=== PATIENT | male | born 1960 | race Caucasian/White ===

== ENCOUNTER 2019-05-23 07:01 | Inpatient (IN) | payer OTHER ==
[2019-05-23] VITALS (7 sets, daily range): BP systolic 92–138; BP diastolic 56–70
[~2019-05-23] VITALS: Ht 172.7 cm; Wt 74.4 kg
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
[~2019-05-23 07:01] MED LIST: ADDERALL XR 2020 MG; ALPRAZOLAM2 MG PO; AMMONIUM LACTA225 GM; BARIATRIC MVI PO; BENICAR20 MG PO; BYSTOLIC 5 MG5 M1 PO; CHANTIX1 MG PO; CIALIS2.5 MG PO; CIPROFLOXACIN500 M1 PO; FEVERALL650 MG RC; GLUCOPHAGE XR500 MG PO; GLUCOPHAGE1000 MG PO; HUMALOG100 UNIT/1; HUMULIN 50100 UNIT/1; IBUPROFEN 600600 M1 PO; LANTUS SUBQ; LORAZEPAM 2MG TA2 M1 PO; LUNESTA1 MG PO; NORCO 10-325 T1 EACH PO; NORCO 5-325 TA1 EACH PO; ONDANSETRON HCL4 M2 PO; PEPTO-BISM262 MG/15 PO; PRILOSEC 20 MG20 MG PO; SENOKOT-S1 TA1 PO; URSODIOL300 MG PO; VICODIN HP 10-1 EAC1 PO; [UNRECOGNIZED DRUG - OTHER]
[2019-05-23 07:44] LABS: HEMATOCRIT 40.9 % (42.0-52.0); HEMOGLOBIN 13.2 gm/dL (14.0-18.0); MCH 24.6 pg (26.0-34.0); MCHC 32.2 g/dL (28.0-37.0); MCV 76.4 fL (80.0-100.0); PLATELET COUNT 420 thou/uL (150-400); RBC 5.36 mil/uL (4.50-6.00); WBC 19.6 thou/uL (4.0-11.0)
[2019-05-23 07:50] LABS: CALCIUM 9.3 mg/dL (8.5-10.1); CREATININE 1.1 mg/dL (0.7-1.3); POTASSIUM 4.1 mmol/L (3.5-5.1)
[2019-05-23 07:57] LABS: ALBUMIN 3.9 g/dL (3.4-5.0); TOTAL BILIRUBIN 0.5 mg/dL (<0.1-1.0); TOTAL PROTEIN 7.6 g/dL (6.4-8.2)
[2019-05-23 08:45] LABS: ABSOLUTE NEUTROPHILS 17.2 thou/uL (1.4-8.2); PLATELET ESTIMATE INCREASED
[2019-05-23 10:31] LABS: HCO3 25.2 mmol/L (22.0-26.0); PCO2 38.8 mmHg (35.0-45.0); PO2 54.1 mmHg (80.0-100.0); pH 7.431 (7.360-7.450); sO2 89.1 % (92.0-98.0)
[2019-05-23 10:34] LABS: URINE BILIRUBIN NEGATIVE (Negative); URINE BLOOD NEGATIVE (Negative); URINE CLARITY CLEAR; URINE COLOR YELLOW; URINE GLUCOSE-RANDOM* 3+ (Negative); URINE KETONES NEGATIVE (Negative); URINE LEUKOCYTES-REFLEX NEGATIVE (Negative); URINE NITRITE-REFLEX NEGATIVE (Negative); URINE PROTEIN (DIPSTICK) NEGATIVE (Negative); URINE SPECIFIC GRAVITY <= 1.005 (1.005-1.035); URINE UROBILINOGEN 0.2 E.U./dl (0.2-1.0)
[2019-05-23 10:42] LABS: AMP/METHAMP POSITIVE (Negative); BARBITURATES Negative (Negative); BENZODIAZEPINES POSITIVE (Negative); COCAINE Negative (Negative); METHADONE Negative (Negative); OPIATES POSITIVE (Negative); PCP Negative (Negative)
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
[2019-05-24 00:10] VITALS: BP 124/72
[2019-05-24 03:54] LABS: ABSOLUTE NEUTROPHILS 6.9 thou/uL (1.4-8.2); BASOPHILS 0.3 % (0.0-2.0); EOSINOPHILS 0.2 % (0.0-3.0); HEMATOCRIT 33.6 % (42.0-52.0); MCHC 32.3 g/dL (28.0-37.0); MCV 77.3 fL (80.0-100.0); POLYS 66.5 % (36.0-66.0); RBC 4.35 mil/uL (4.50-6.00); RDW 15.6 % (10.5-14.5); WBC 10.4 thou/uL (4.0-11.0)
[2019-05-24 03:56] LABS: CALCIUM 9.1 mg/dL (8.5-10.1); CREATININE 0.8 mg/dL (0.7-1.3); POTASSIUM 3.6 mmol/L (3.5-5.1)
[2019-05-24 03:59] LABS: HEMOGLOBIN 10.9 gm/dL (14.0-18.0); PLATELET COUNT 339 thou/uL (150-400)
[2019-05-24 04:40] VITALS: BP 126/70
[2019-05-24 05:36] LABS: GLYCOHEMOGLOBIN (HGB A1C) 7.9 % (4.8-5.6)
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
[2019-05-24 07:18] VITALS: BP 146/79
--- NOTE | 2019-05-24 08:47 | 2DMMODE ---
[facility] [address] [place] [address] 2 D/M-MODE ECHOCARDIOGRAM Name: CONSTANZA MEJIA Room #: 355-P ADM IN M.R.#: [id number] Admission: 05/23/19 Attend Phys: Juan Luis Kim MD Discharge: Date of : 60 Report #: [id number] THIS REPORT FOR: //name// APPROVED REPORT Study performed: 05/23/2019 12:02:57 EXAM: Comprehensive 2D, Doppler, and color-flow Echocardiogram Patient Location: In-Patient Room #: 355 Status: routine BSA: 1.88 HR: 83 bpm Rhythm: NSR Other Information Study Quality: Adequate 2D Dimensions RVDd: 34.15 mm IVSd: 15.64 (7-11mm) LVOT Diam: 22.21 (18-24mm) LVDd: 42.15 mm PWd: 13.48 (7-11mm) Ascending Ao: 30.19 (22-36mm) LVDs: 26.11 (25-40mm) Left Atrium: 32.71 (27-40mm) Aortic Root: 32.22 mm LV Single Plane 4CH: 68.17 % Volumes Left Atrial Volume (Systole) Single Plane 4CH: 57.41 mL Single Plane 2CH: 31.89 mL Aortic Valve AoV Peak Puneet.: 2.20 m/s AO Peak Gr.: 19.42 mmHg AO Mean Gr.: 10.69 mmHg AO V2 Mean: 1.56 m/s AO V2 VTI: 44.73 cm Mitral Valve E/A Ratio: 1.0 MV Decel. Time: 269.49 ms MV E Max Puneet.: 0.91 m/s MV A Puneet.: 0.87 m/s [facility] [place] [address] [place] [address] 2 D/M-MODE ECHOCARDIOGRAM Name: CONSTANZA MEJIA YAZ Room #: 355-P ADM IN ..#: [id number] Admission: 05/23/19 Attend Phys: Juan Luis Kim MD Discharge: Date of : 60 Report #: [id number] MV PHT: 78.15 ms Pulmonary Valve PV Peak Puneet.: 1.22 m/s PV Peak Gr.: 5.95 mmHg Tricuspid Valve TR Peak Puneet.: 2.82 m/s TR Peak Gr.: 31.82 mmHg Left Ventricle The left ventricle is normal size. Mild concentric left ventricular hypertrophy. The left ventricular systolic function is normal. The left ventricular ejection fraction is within the normal range. LVEF is 60-65%. Right Ventricle The right ventricle is normal size. The right ventricular systolic function is normal. Atria The left atrium size is normal. The right atrium size is normal. Aortic Valve The Aortic valve is sclerotic. No hemodynamically significant valvular aortic stenosis. Mitral Valve The mitral valve is normal in structure and function. Mild mitral regurgitation. Tricuspid Valve Trace to mild tricuspid regurgitation. Estimated PAP 40 mmHg. Pulmonic Valve Pulmonic valve is grossly normal in structure. Trace pulmonic regurgitation. Great Vessels The aortic root is normal in size. The ascending aorta is normal in size. IVC is dilated and collapses >50% with inspiration. Pericardium There is no pericardial effusion. [facility] [place] [address] [place] [address] 2 D/M-MODE ECHOCARDIOGRAM Name: CONSTANZA MEJIA Room #: 355-P [facility] IN .R.#: [id number] Admission: 05/23/19 Attend Phys: Juan Luis Kim MD Discharge: Date of : 60 Report #: [id number] <Conclusion> The left ventricle is normal size. Mild concentric left ventricular hypertrophy. LVEF is 60-65%. The right ventricle is normal size. The left atrium size is normal. The Aortic valve is sclerotic. No hemodynamically significant valvular aortic stenosis. Mild mitral regurgitation. Trace to mild tricuspid regurgitation. Estimated PAP 40 mmHg. The aortic root is normal in size. There is no pericardial effusion. <ELECTRONICALLY SIGNED> By: Rell Mclain MD, [facility] 05/24/19 0846 0846 Rell Mclain MD, FACC /INF
[2019-05-24 11:31] VITALS: BP 155/74
[2019-05-24] MEDS ORDERED: ACETAMINOPHEN325 M1 PO (14:46)
[2019-05-24] MEDS ORDERED: LEVAQUIN 750 M750 MG PO (14:46)
[2019-05-24] MEDS ORDERED: BENICAR40 MG PO (14:46)
[2019-05-24 15:04] VITALS: BP 155/74
[2019-05-24 15:07] VITALS: BP 141/72
--- NOTE | 2019-05-24 16:02 | NUR ---
PATIENT A/O X4. AMBULATED IN DOCKERY WAY WITH STEADY GAIT. DC HOME NOW.
--- NOTE | 2019-05-25 16:02 | EKG ---
[address] [address] ELECTROCARDIOGRAM REPORT Name: CONSTANZA MEJIA Room #: 355-P DIS IN M.R.#: [id number] Admission: 05/23/19 Attend Phys: Juan Luis Kim MD Discharge: 05/24/19 Date of : 60 Report #: [id number] THIS REPORT FOR: //name// 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 Baseline wander in lead(s) V5 Compared to ECG 12/01/2012 13:24:57 Electronically Signed On 05-25-2019 16:01:57 WAREDRESSER by Israel Ott [email or web address] <ELECTRONICALLY SIGNED> By: Israel Ott MD 05/25/19 1601 0737 0737 Israel Ott MD /EPI
--- NOTE | 2019-05-25 16:05 | EKG ---
[address] [address] ELECTROCARDIOGRAM REPORT Name: CONSTANZA MEJIA Room #: 355- DIS IN M.R.#: [id number] Admission: 05/23/19 Attend Phys: Juan Luis Kim MD Discharge: 05/24/19 Date of : 60 Report #: [id number] THIS REPORT FOR: //name// [facility] Test Date: 2019-05-23 Test Time: 11:58:33 Pat Name: CONSTANZA MEJIA Department: Room: 355 P Gender: M Office Support Specialist: Eric MAYER : 1960 Requested By: Rell Mclain Order Number: [id number] MD: Israel Ott Measurements Intervals [place] Rate: 87 P: -63 LA: 70 QRS: 16 QRSD: 94 T: 5 QT: 369 QTc: 444 Interpretive Statements Sinus or ectopic atrial rhythm Short LA interval Borderline T abnormalities, inferior leads Compared to ECG 12/01/2012 13:24:57 Electronically Signed On 05-25-2019 16:04:54 CHEESE BLENDER by Israel Ott [email or web address] <ELECTRONICALLY SIGNED> By: Israel Ott MD 05/25/19 1604 1158 1158 Israel Ott MD /EPI
== END 2019-05-24 16:29 | disposition home or self-care (01) | DRG 871 ==
LOC: ER 07:01 → EROBS 08:31 → 3W 09:32
PROVIDERS: Emergency Medicine; ADMIT Internal Medicine
DX: A41.9 Sepsis, unspecified organism (principal); J18.9 Pneumonia, unspecified organism; G92 Toxic encephalopathy; F13.20 Sedative, hypnotic or anxiolytic dependence, uncomplicated; F11.20 Opioid dependence, uncomplicated; E11.65 Type 2 diabetes mellitus with hyperglycemia; I10 Essential (primary) hypertension; S90.934A Unspecified superficial injury of right lesser toe(s), initial encounter; X58.XXXA Exposure to other specified factors, initial encounter; F41.9 Anxiety disorder, unspecified; E11.40 Type 2 diabetes mellitus with diabetic neuropathy, unspecified; F90.9 Attention-deficit hyperactivity disorder, unspecified type; I35.0 Nonrheumatic aortic (valve) stenosis; K21.9 Gastro-esophageal reflux disease without esophagitis; Z79.899 Other long term (current) drug therapy; Z91.09 Other allergy status, other than to drugs and biological substances; Z87.891 Personal history of nicotine dependence; Y93.89 Activity, other specified; Y92.89 Other specified places as the place of occurrence of the external cause; Y99.8 Other external cause status; Z88.0 Allergy status to penicillin; Z79.4 Long term (current) use of insulin; Z79.2 Long term (current) use of antibiotics; Z98.84 Bariatric surgery status; Z23 Encounter for immunization; Z90.49 Acquired absence of other specified parts of digestive tract; Z82.49 Family history of ischemic heart disease and other diseases of the circulatory system; G89.4 Chronic pain syndrome; E11.69 Type 2 diabetes mellitus with other specified complication
CPT/HCPCS: 10080

== ENCOUNTER 2019-05-28 06:07 | Inpatient (IN) | payer OTHER ==
[~2019-05-28] VITALS: Ht 172.7 cm; Wt 71.7 kg
[~2019-05-28 06:07] MED LIST changes: +ACETAMINOPHEN325 M1 PO; +BENICAR40 MG PO; +LEVAQUIN 750 M750 MG PO
[2019-05-28 06:08] VITALS: BP 159/82
[2019-05-28] MEDS ORDERED: METFORMIN PO (06:14)
[2019-05-28] MEDS ORDERED: LOPRESSOR50 MG PO (06:15)
[2019-05-28] MEDS ORDERED: LISINOPRIL PO (06:16)
[2019-05-28] MEDS ORDERED: NEXIUM 40 MG CA40 M1 PO (06:17)
[2019-05-28 06:37] LABS: HEMATOCRIT 37.8 % (42.0-52.0); HEMOGLOBIN 12.1 gm/dL (14.0-18.0); MCH 24.8 pg (26.0-34.0); MCHC 32.1 g/dL (28.0-37.0); MCV 77.2 fL (80.0-100.0); PLATELET COUNT 512 thou/uL (150-400); RBC 4.89 mil/uL (4.50-6.00); RDW 14.7 % (10.5-14.5); WBC 14.9 thou/uL (4.0-11.0)
[2019-05-28 06:49] LABS: ANION GAP 10 mmol/L (7-16); BUN 9 mg/dL (7-18); CALCIUM 9.5 mg/dL (8.5-10.1); CHLORIDE 96 mmol/L (98-107); CO2 29 mmol/L (21-32); GLUCOSE 217 mg/dL (74-106); POTASSIUM 4.2 mmol/L (3.5-5.1); SODIUM 135 mmol/L (136-145)
[2019-05-28 07:00] LABS: ALBUMIN 3.6 g/dL (3.4-5.0); LIPASE 63 U/L (73-393); SGOT 23 U/L (15-37); SGPT 25 U/L (30-65); TOTAL BILIRUBIN 0.4 mg/dL (<0.1-1.0); TOTAL PROTEIN 7.4 g/dL (6.4-8.2); TROPONIN-I <0.06 ng/mL (<0.06)
[2019-05-28 07:25] LABS: URINE BILIRUBIN NEGATIVE (Negative); URINE BLOOD NEGATIVE (Negative); URINE CLARITY CLEAR; URINE COLOR YELLOW; URINE GLUCOSE-RANDOM* NEGATIVE (Negative); URINE KETONES NEGATIVE (Negative); URINE LEUKOCYTES-REFLEX NEGATIVE (Negative); URINE NITRITE-REFLEX NEGATIVE (Negative); URINE PROTEIN (DIPSTICK) NEGATIVE (Negative); URINE SPECIFIC GRAVITY 1.025 (1.005-1.035); URINE UROBILINOGEN 0.2 E.U./dl (0.2-1.0)
[2019-05-28 08:55] LABS: ABSOLUTE NEUTROPHILS 11.9 thou/uL (1.4-8.2); ANISOCYTOSIS 1+; METAMYELOCYTES 2 %
[2019-05-28 11:17] LABS: AMP/METHAMP Negative (Negative); BARBITURATES Negative (Negative); BENZODIAZEPINES POSITIVE (Negative); COCAINE Negative (Negative); METHADONE Negative (Negative); OPIATES POSITIVE (Negative); PCP Negative (Negative)
[2019-05-28 11:41] VITALS: BP 158/67
[2019-05-28 12:10] VITALS: BP 142/77
--- NOTE | 2019-05-28 16:08 | EKG ---
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[place] : 1960 Requested By: Joey Tejeda Order Number: [id number] MD: Israel Ott Measurements Intervals [place] Rate: 78 P: 127 MD: 94 QRS: 41 QRSD: 98 T: -3 QT: 380 QTc: 433 Interpretive Statements Sinus rhythm Short MD interval Borderline T abnormalities, inferior leads Compared to ECG 05/23/2019 11:58:33 Ectopic atrial rhythm no longer present T-wave abnormality still present Electronically Signed On 05-28-2019 16:08:12 PROJECT ESTIMATOR by Israel Ott [email or web address] <ELECTRONICALLY SIGNED> By: Israel Ott MD 05/28/19 1608 3 Israel Ott MD /EPI
--- NOTE | 2019-05-28 16:57 | NUR ---
1630 pt up to floor from post op. pt alert and oriented. Follows commands. lungs clear, diminished. abd incision intact, aproximated, lamar. bowel sounds hypoactive, distended, hard. BG 211. FAMILY IN ROOM VISITING. PT COMPLAINS OF PAIN, 9. Pain med given per order. denies any needs. will continue to monitor
[2019-05-28 19:19] VITALS: BP 159/88
[2019-05-28 23:56] VITALS: BP 183/92
[2019-05-29 04:27] VITALS: BP 182/83
[2019-05-29 05:20] LABS: HEMATOCRIT 35.9 % (42.0-52.0); HEMOGLOBIN 11.4 gm/dL (14.0-18.0); MCH 24.5 pg (26.0-34.0); MCHC 31.8 g/dL (28.0-37.0); MCV 77.2 fL (80.0-100.0); RBC 4.65 mil/uL (4.50-6.00); RDW 15.1 % (10.5-14.5); WBC 15.2 thou/uL (4.0-11.0)
[2019-05-29 05:41] LABS: CALCIUM 8.8 mg/dL (8.5-10.1); CREATININE 0.9 mg/dL (0.7-1.3); POTASSIUM 4.5 mmol/L (3.5-5.1)
[2019-05-29 07:11] VITALS: BP 180/91
[2019-05-29 11:36] VITALS: BP 153/73
[2019-05-29 15:43] VITALS: BP 188/99
[2019-05-29 19:43] VITALS: BP 177/82
--- NOTE | 2019-05-29 19:49 | NUR ---
1800 pt transfered to 450. Report given CARA FUNES. PT BELONGING SEND WITH HIM.
--- NOTE | 2019-05-29 21:45 | NUR ---
RECEIVED A CALL FROM PHARMACY THAT HAS ORDERD TYLENOL DRIPS ON PT. PER PHARMACY, JO BARR. TYLENOL DRIP CAN ONLY BE ORDERED BY HOT REPAIRMAN OR CARDIOTHORACIC SURGEON PER HOSPITAL PROTOCOL. CALLED 'S OFFICE AND PAGED YARN TEXTURING MACHINE OPERATOR NUBIA AT AROUND 5468.
[2019-05-30 00:04] VITALS: BP 173/89
--- NOTE | 2019-05-30 04:15 | NUR ---
ASSUMED CARE OF PT AT 1900HRS. PT MAKES NEEDS BE KNOWN. FALL PRECAUTION IN PLACE. FAMILY WAS AT BEDSIDE FOR THE DURATION OF THE SHIFT. SURGICAL INCISION WAS C/D/I. PT REPORTED PAIN AND WAS MEDICATED WITH PRN PAIN MEDS WITH SOME RELIEF. PT IS NPO. PT DENIED NAUSEA AND NO VOMITING WAS NOTED. PT REPORTS PASSING GAS. PT WAS ABLE TO SLEEP PART OF THE SHIFT. PT HAS ELEVATED BP AND PRN MEDS WERE USED. WILL CONTINUE TO MONITOR FOR CHANGES.
[2019-05-30 04:21] VITALS: BP 179/92
[2019-05-30 05:31] VITALS: BP 148/76; BP 159/58
[2019-05-30 05:40] LABS: HEMATOCRIT 40.1 % (42.0-52.0); HEMOGLOBIN 12.6 gm/dL (14.0-18.0); MCH 24.4 pg (26.0-34.0); MCHC 31.5 g/dL (28.0-37.0); MCV 77.4 fL (80.0-100.0); RBC 5.18 mil/uL (4.50-6.00); RDW 15.6 % (10.5-14.5); WBC 17.1 thou/uL (4.0-11.0)
[2019-05-30 06:01] LABS: CALCIUM 9.1 mg/dL (8.5-10.1); CREATININE 0.8 mg/dL (0.7-1.3)
[2019-05-30 08:00] VITALS: BP 164/78
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
--- NOTE | 2019-05-30 10:32 | NUR ---
PT A&OX4, VSS, PAIN IN ABDOMEN. INCISION MIDLINE ABDOMEN SECURED WITH DERMABOND, NO DRAINAGE, TENDER TO TOUCH. SOLORZANO REMOVED OVERNIGHT, PATIENT HAS VOIDED SINCE, NO BM YET. PT PAIN LEVEL IS 10 AND EXPERIENCING ANXIETY. VERBAAL ORDER FROM SURGEON TO WALK PATIENT. FLUIDS ARE RUNNING, IV PATENT. NO SIGNS OF DISTRESS. FAMILY AT BEDSIDE. WILL CONTINUE TO MONITOR.
[2019-05-30 15:00] VITALS: BP 160/80
[2019-05-30 19:31] VITALS: BP 146/81
[2019-05-31 03:33] LABS: HEMATOCRIT 38.7 % (42.0-52.0); HEMOGLOBIN 12.2 gm/dL (14.0-18.0); MCH 24.3 pg (26.0-34.0); MCHC 31.7 g/dL (28.0-37.0); MCV 76.7 fL (80.0-100.0); RBC 5.04 mil/uL (4.50-6.00); RDW 15.3 % (10.5-14.5); WBC 12.7 thou/uL (4.0-11.0)
[2019-05-31 04:02] LABS: CALCIUM 8.7 mg/dL (8.5-10.1); CREATININE 0.7 mg/dL (0.7-1.3); POTASSIUM 3.5 mmol/L (3.5-5.1)
[2019-05-31 04:11] VITALS: BP 100/44
--- NOTE | 2019-05-31 04:51 | NUR ---
PROGRESS PT NOT PROGRESSING WITH PAIN CONTROL. RATES HIS PAIN A 10 TO 20 OUT OF 0/10 SCALE. TAKING 1.2 MG DILAUDID EVERY 2 HOURS WITH LITTLE EFFECT. PT ALSO VERY ANXIOUS REQUESTING 1 MG ATIVAN EVERY 4 HOURS IVP AND IS ALSO TAKING XANAX Q8HRS. PT DOZES OFF FOR BRIEF PERIODS BUT AWAKENS EVERY TIME I ENTER THE ROOM. ABDOMEN DISTENDED AND SLIGHTLY FIRM BUT STATES ITS A LOT SOFTER TODAY THAN PREVIOUSLY. PASSED A LARGE AMOUNT OF FLATUS AFTER SUPPOSITORY, BS HYPOACTIVE DENIES NAUSEA. USING ORAL SWABS FOR COMFORT PT REMAINS NPO. CONTINUE TO MONITOR.
[2019-05-31 05:54] VITALS: BP 167/85
[2019-05-31 08:09] VITALS: BP 164/91
--- NOTE | 2019-05-31 16:38 | NUR ---
Assumed patient care at 0715. Vital signs have been stable. Abdominal incision is without s/s of infection. Patient was given po medications last two shifts with minimal amount of water, as he had a bowel movement last night. Dr Bentley notified of this, changed Diet to Clear Liquids as patient reported having another bowel movement this am and abdomen is less firm and distended. Patient had another bowel movement this afternoon (brown, loose and of moderate amount). Patient has been asking for his Hydromorphone, Ativan and Xanax often. IV continues in left forearm with Sodium Chloride 0.9% running at 100mLs per hour. Patient has been doing well on clear liquids; no nausea and/or vomiting. Will continue to monitor.
[2019-05-31 17:01] VITALS: BP 154/85
[2019-05-31 18:44] VITALS: BP 154/87
[2019-06-01 08:23] VITALS: BP 128/81
--- NOTE | 2019-06-01 12:13 | NUR ---
PT ADMITTED RELATED TO ABDOMINAL PAIN. CM REVIEWED CHART AND SPOKE WITH CARE TEAM. CM MET WITH AT BEDSIDE THIS DAY. PT IS A&O X4. CM ROLE INTRODUCED. PT INDICATED HE HAS TWO HOUSES A [place] IN [place] AND ONCE HERE WHICH HE WILL BE RETURNING TO UPON [place]. PT INDICATED THERE ARE 2 STEPS TO ENTER THEN ALL NEEDS ON 1 LEVEL. PT INDICATED HIS SIG OTHER IS STAYING WITH HIM. 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 PT INDICATED HE PLANS TO RETURN HOME ONCE MEDICALLY STABLE. CM TO FOLLOW INDICATED WITH DC PLANNING.
[2019-06-01 15:11] VITALS: BP 145/77
--- NOTE | 2019-06-01 17:40 | NUR ---
Assumed patient care at 0715. Vital signs have been stable. Abdominal incision site is intact; no signs/symptoms of infection. Patient started on bowel regime today, has consumed Soft Fiber Restricted Diet today. Patient has had no nausea and/or vomiting. He has reported having two soft-formed bowel movements. Patient continues to complain of abdominal pain and anxiety. He has been getting up to use the restroom by himself, as he does not seem to remember to call for stand-by assist (he is wearing yellow socks). IV fluids have been discontinued. Pain medications have been decreased by quantity. Patient verbalizes an understanding to this. Will continue to monitor.
[2019-06-01 19:06] VITALS: BP 134/76
--- NOTE | 2019-06-02 07:44 | NUR ---
PROGRESS PT A/O X4 TAKING HYDROCODONE AND DILAUDID FOR PAIN WITH SOME EFFECT, SLEEPS AFTER MEDICATIONS BUT AWAKENS REQUESTING IT. CONTINUES ATIVAN Q4HRS AND XANAX NEEDED. PT SLEPT MORE LAST NIGHT. LARGE SOFT BM AFTER SUPPOSITORY AND PT CONTINUES TO PASS FLATUS SOFT ABDOMEN SLIGHTLY ROUNDED BUT HAS NORMOACTIVE BS. PLANS TO DC HOME TODAY.
[2019-06-02 07:50] VITALS: BP 130/59
[2019-06-02] MEDS ORDERED: MIRALAX17 GM PO (09:29)
[2019-06-02] MEDS ORDERED: SENNA-TIME S T1 EACH PO (09:29)
[2019-06-02 10:01] LABS: HEMATOCRIT 35.8 % (42.0-52.0); HEMOGLOBIN 11.4 gm/dL (14.0-18.0); MCH 24.4 pg (26.0-34.0); MCHC 31.8 g/dL (28.0-37.0); MCV 76.7 fL (80.0-100.0); RBC 4.67 mil/uL (4.50-6.00); RDW 15.1 % (10.5-14.5); WBC 10.2 thou/uL (4.0-11.0)
[2019-06-02 10:22] LABS: ALBUMIN 2.5 g/dL (3.4-5.0); CALCIUM 8.4 mg/dL (8.5-10.1); CREATININE 0.8 mg/dL (0.7-1.3); PHOSPHORUS 3.9 mg/dL (2.5-4.9); POTASSIUM 3.2 mmol/L (3.5-5.1)
--- NOTE | 2019-06-02 12:44 | NUR ---
CARE TEAM INDICATED THAT PT IS MEDICALLY STABLE TO DC HOME THIS DAY. PT INDICATED THAT HE HAS SUPPORT OF CHILDREN AND SIG OTHER AND THAT HE DOESN'T ANTICIAPTE ANY NEEDS UPON DC. NO OTHER CM INTERVENTION INDICATED. CASE CLOSED.
[2019-06-02] MEDS ORDERED: METFORMIN HCL500 M3 PO (13:08)
[2019-06-02] MEDS ORDERED: MOVANTIK12.5 MG PO (13:08)
[2019-06-02] MEDS ORDERED: VICODIN HP 10-1 EAC1 PO (13:08)
[2019-06-02] MEDS ORDERED: XANAX1 MG PO (13:08)
[2019-06-02 13:31] VITALS: BP 130/59
--- NOTE | 2019-06-02 16:13 | NUR ---
Patient was discharged at 1430 today. Education was provided to patient and girlfriend. Patient verbalized an understanding to all Discharge Instructions before signing Discharge Paperwork. Patient left with his cell phone, cremator, clothing and girlfriend at approximately 1435.
== END 2019-06-02 14:54 | disposition home or self-care (01) | DRG 335 ==
LOC: ER 06:07 → EROBS 08:36 → TBA 08:36 → 3W 08:36 → TBA 12:09 → 3W 16:37 → 4W 05-29 18:53
PROVIDERS: Emergency Medicine; Surgery; ADMIT Hospitalist
PROC: 0DN80ZZ Release Small Intestine, Open Approach (ICD-10-PCS; principal; 2019-05-28)
DX: K56.50 Intestinal adhesions [bands], unspecified as to partial versus complete obstruction (principal); E43 Unspecified severe protein-calorie malnutrition; J98.11 Atelectasis; R18.8 Other ascites; K56.2 Volvulus; K56.7 Ileus, unspecified; K21.9 Gastro-esophageal reflux disease without esophagitis; F41.9 Anxiety disorder, unspecified; F13.980 Sedative, hypnotic or anxiolytic use, unspecified with sedative, hypnotic or anxiolytic-induced anxiety disorder; R59.0 Localized enlarged lymph nodes; K40.90 Unilateral inguinal hernia, without obstruction or gangrene, not specified as recurrent; E11.40 Type 2 diabetes mellitus with diabetic neuropathy, unspecified; D72.829 Elevated white blood cell count, unspecified; F11.90 Opioid use, unspecified, uncomplicated; D50.9 Iron deficiency anemia, unspecified; I10 Essential (primary) hypertension; K59.00 Constipation, unspecified; G89.29 Other chronic pain; I25.10 Atherosclerotic heart disease of native coronary artery without angina pectoris; Z87.01 Personal history of pneumonia (recurrent); Z87.891 Personal history of nicotine dependence; Z79.84 Long term (current) use of oral hypoglycemic drugs; Z79.899 Other long term (current) drug therapy; Z88.0 Allergy status to penicillin; Z88.8 Allergy status to other drugs, medicaments and biological substances; Z98.84 Bariatric surgery status; Z90.49 Acquired absence of other specified parts of digestive tract; T40.605A Adverse effect of unspecified narcotics, initial encounter
CPT/HCPCS: 10047; 10879; 50010; 50101; 50386; 50455; 51114; 54118; 56524; 56525; 56526; 57092; 57103; 62110; 62900; 70005

== ENCOUNTER → 2021-02-27 | Outpatient (CLI) | payer BC, OTHER ==
[~2021-02-27] MED LIST changes: +LISINOPRIL PO; +LOPRESSOR50 MG PO; +METFORMIN HCL500 M3 PO; +METFORMIN PO; +MIRALAX17 GM PO; +MOVANTIK12.5 MG PO; +NEXIUM 40 MG CA40 M1 PO; +SENNA-TIME S T1 EACH PO; +XANAX1 MG PO
== END ==
LOC: SJCVCIMAG 13:02
PROVIDERS: ATTEND Internal Medicine Cardiovascular Disease
DX: I10 Essential (primary) hypertension (principal); E11.9 Type 2 diabetes mellitus without complications; E78.00 Pure hypercholesterolemia, unspecified; G89.29 Other chronic pain; G47.30 Sleep apnea, unspecified; Z82.49 Family history of ischemic heart disease and other diseases of the circulatory system; Z79.84 Long term (current) use of oral hypoglycemic drugs; Z79.899 Other long term (current) drug therapy; Z87.891 Personal history of nicotine dependence

== ENCOUNTER 2021-03-03 00:19 | Inpatient (IN) | payer BC, OTHER ==
[~2021-03-03] VITALS: Ht 172.7 cm; Wt 61.7 kg
--- NOTE | ~2021-03-03 | HC ---
[facility] [place] [address] CONSULTATION Name: CONSTANZA MEJIA Room #: 202-P ADM IN M.R.#: [id number] Admission: 03/03/21 Attend Phys: Ruben Chandler MD Discharge: Date of : 60 Report #: [id number] THIS REPORT FOR: cc: Raj Wilkerson III, MD, III, Charles R. MD Khosla,Frank Mckeon MD ~ DATE OF SERVICE: 03/03/2021 HISTORY OF PRESENT ILLNESS: This is a 61-year-old male patient who was seen by me as a stroke protocol. I talked to Emergency Room physician and I talked to the patient himself. The history was provided, which I did not ask specifically, but assumed the patient's . The patient has a history of depression. He takes antidepressants, but takes it intermittently. He has insomnia. He had pretty significant stressors in the body. For insomnia, he has been tried on multiple medications. He has been tried on Seroquel and he has been tried on benzodiazepine and in fact looks like he is on clonazepam now as per history. The main medicine, which was started a few weeks ago, is Geodon. He takes it every night. He feels very groggy after that. He also has a tendency to have a bowel movement and that has what happened today, he took his Geodon, he felt very sleepy and 2 hour after that, he wanted to go for a bowel movement, he was trying to hurry up and then he hit his head pretty hard. After hitting his head, he passed out and he was out for about 10 minutes. Then, he recovered. He became coherent after that. According to the family, he is back to his normal self. A CT scan of the head and C-spine was done as trauma workup as I understand from Emergency Room physician. CT scan of the head showed a stroke in the right MCA distribution. He has no prior history of stroke. REVIEW OF SYSTEMS: Indicate has a history of diabetes and hypertension. He has been started on some antihypertensive recently. He appeared to have a significant history of anxiety and depression. Records indicate he has a history of bypass surgery, neuropathy, GERD. He has prior tonsillectomy and appendectomy. He denies any prior history of clinical stroke. He sees Dr. Mclain for his cardiac care and hypertension. It is not clear how does his blood sugar run on a regular basis. That was his relevant 14-point review of system. PAST MEDICAL HISTORY: Positive for what looks like significant insomnia. FAMILY HISTORY: Negative for early age stroke. SOCIAL HISTORY: He says he does not drink any alcohol and he smokes occasionally. PHYSICAL EXAMINATION: NEUROLOGIC: The patient's examination indicate he is alert. His [facility] [address] [place] [address] CONSULTATION Name: CONSTANZA MEJIA Room #: 202-P [facility] IN M.R.#: [id number] Admission: 03/03/21 Attend Phys: Ruben Chandler MD Discharge: Date of : 60 Report #: [id number] expressions are poor. He talks very slowly, but that is his baseline and he has tried to relate his history reasonably well, but his memory does appear to be poor, but I do not know whether it is just because of the head injury or that is baseline, but most of the time, he is able to tell the history reasonably well. His cranial nerve examination appears unremarkable except he may have some left hemianopsia, difficult to tell. He does appear to be slightly weak on the left side as compared to the right side, but I made him walk and the patient thinks it is all his baseline. He does not have any weakness. So, I think if it is weakness, he has compensated for it and it may be just a regular right to left difference in the right-handed person. His position sense is intact on both sides. Reflexes look symmetrical, but somewhat diminished in the lower extremities. CARDIORESPIRATORY: Appear noncontributory. GENERAL: He is a thinly built individual. He walked with reasonable stability. NECK: He does not have any thyroid mass or carotid bruit. LABORATORY DATA: I reviewed his CT scan film that does show an old stroke, but well seen on the CT and is an old finding, but apparently they have compared with the 2013, which I do not have it and the finding is new since then. IMPRESSION: 1. Present symptoms appeared to be secondary to concussion because he hit his head pretty hard. 2. He does have a finding of stroke on the right middle cerebral artery distribution. Surprisingly that does not have any clinical symptom as far as he knows, but the patient with right hemispheric stroke are predisposed to lot of psychiatric issues and that may be contributing to his symptoms, although that psychiatric issues appeared to be because of multiple social circumstances they described. 3. This patient has a significant insomnia. He is using multiple medications in that regard. He has a blank facial expression. I highly recommended that he see a psychiatrist history and a sleep specialist as an outpatient to manage his medications in that regard because from all indication, it looks like more specialized care. I also discussed with all the medication side effect he is on. RECOMMENDATION: I think the patient's neurological examination and imaging studies indicate chronic problems. His GFR is only 39. I had to give him contrast. So, I think the best will be to do an MRI of the brain and MRA of the [place] of [place]. His blood sugar is high that needs to be treated, but that needs to be done by the hospitalist. Dr. Donnelly will follow up this patient because she will be covering the service from 8:00 today and I might mention that his blood pressure was 137/65, respirations 14, pulse is 68 and his white count for some reason is a traced up. He does have slightly low MCVs and that also may have to be addressed, but we will defer that to the hospitalist. [facility] [address] [place] [address] CONSULTATION Name: CONSTANZA MEJIA YAZ Room #: 202-P ADM IN M.R.#: [id number] Admission: 03/03/21 Attend Phys: Ruben Chandler MD Discharge: Date of : 60 Report #: [id number] Thank you very much for this referral and if you have any questions, please feel free to contact me. By: [id number] Frank Pitts MD /nt
[2021-03-03 01:07] LABS: ABSOLUTE NEUTROPHILS 9.1 thou/uL (1.4-8.2); BASOPHILS 0.5 % (0.0-2.0); EOSINOPHILS 2.2 % (0.0-3.0); HEMATOCRIT 39.9 % (42.0-52.0); HEMOGLOBIN 12.6 gm/dL (14.0-18.0); LYMPHOCYTES 18.2 % (24.0-44.0); MCHC 31.5 g/dL (28.0-37.0); MCV 76.1 fL (80.0-100.0); MONOCYTES 7.1 % (1.0-8.0); PLATELET COUNT 324 thou/uL (150-400); RBC 5.25 mil/uL (4.50-6.00); RDW 15.8 % (10.5-14.5); WBC 12.6 thou/uL (4.0-11.0)
[2021-03-03 01:08] LABS: CALCIUM 8.7 mg/dL (8.5-10.1); CREATININE 1.8 mg/dL (0.7-1.3); POTASSIUM 3.4 mmol/L (3.5-5.1)
[2021-03-03 06:53] VITALS: BP 136/65
[2021-03-03 07:21] VITALS: BP 136/65
--- NOTE | 2021-03-03 08:11 | EKG ---
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 : 1960 Requested By: Ruben Chandler Order Number: [id number] : Pan Clancy Measurements Intervals [place] Rate: 60 P: 230 UT: 92 QRS: 68 QRSD: 124 T: -58 QT: 590 QTc: 590 Interpretive Statements Ectopic atrial rhythm Short [place] interval Probable LVH with secondary repol abnrm J Point elevation, probably due to LVH Prolonged QT interval Baseline wander in lead(s) I,III,aVL Compared to ECG 05/28/2019 06:24:09 Ectopic atrial rhythm now present Left ventricular hypertrophy now present ST (T wave) deviation now present Prolonged QT interval now present Sinus rhythm no longer present Electronically Signed On 03-03-2021 8:11:19 CDT by Pan Clancy [email or web address] <ELECTRONICALLY SIGNED> By: Pan Clancy MD, FACC 03/03/21810 Pan Clancy MD, [facility] /EPI
[2021-03-03 08:43] LABS: CHOLESTEROL 159 mg/dL (<200); HDL CHOLESTEROL 36 mg/dL (>40); LDL CHOLESTEROL 95 mg/dL (<100); TC:HDL 4.4 Ratio (Not establshd); TRIGLYCERIDE 143 mg/dL (<150); VLDL 29 mg/dL (<40)
[2021-03-03] MEDS ORDERED: CLONAZEPAM 0.50.5 M1 PO (09:18)
[2021-03-03 09:30] VITALS: BP 155/73
--- NOTE | 2021-03-03 09:40 | NUR ---
PT ORIENTED TO ROOM AND UNIT, BED LOW AND LOCKED, SIDE RAILS UPX3, CALL LIGHT IN REACH, TELE APPLIED. WILL CONTINUE TO ASSESS.
[2021-03-03] MEDS ORDERED: METFORMIN HCL1000 MG PO (10:18)
[2021-03-03] MEDS ORDERED: GEODON80 MG PO (10:21)
[2021-03-03] MEDS ORDERED: CELEXA 20 MG TA20 MG PO (10:21)
[2021-03-03] MEDS ORDERED: ALPRAZOLAM1 MG PO (10:21)
[2021-03-03] MEDS ORDERED: EDARBYCLOR 40-1 EAC1 PO (10:22)
[2021-03-03] MEDS ORDERED: BYSTOLIC10 MG PO (10:22)
[2021-03-03 11:00] VITALS: BP 157/80
--- NOTE | 2021-03-03 13:01 | 2DMMODE ---
[facility] [address] 2 D/M-MODE ECHOCARDIOGRAM Name: CONSTANZA MEJIA Room #: 202-P ADM IN M.R.#: [id number] Admission: 03/03/21 Attend Phys: Ruben Chandler MD Discharge: Date of : 60 Report #: [id number] THIS REPORT FOR: cc: Raj Wilkerson III, MD, III, Charles R. MD Lundgren,Rene Powell MD [facility] ~ APPROVED REPORT Study performed: 03/03/2021 11:55:19 EXAM: Comprehensive 2D, Doppler, and color-flow Echocardiogram Patient Location: Bedside Room #: 202 Status: routine BSA: 1.72 HR: 60 bpm BP: 155/73 mmHg Rhythm: NSR Other Information Study Quality: Good Indications Syncope, abnormal EKG. Hx: Elevated calcium score, PVD, HTN, HLP, DM. 2D Dimensions RVDd: 32.00 mm IVSd: 13.00 (7-11mm) LVOT Diam: 21.00 (18-24mm) LVDd: 40.00 mm PWd: 12.00 (7-11mm) Ascending Ao: 30.00 (22-36mm) LVDs: 29.00 (25-40mm) Left Atrium: 35.00 (27-40mm) Aortic Root: 32.00 mm Volumes Left Atrial Volume (Systole) Single Plane 4CH: 73.00 mL Single Plane 2CH: 69.39 mL LA ESV Index: 44.00 mL/m2 Aortic Valve AoV Peak Puneet.: 2.92 m/s AO Peak Gr.: 34.16 mmHg LVOT Max P.66 mmHg AO Mean Gr.: 16.80 mmHg [facility] [address] [place] [address] 2 D/M-MODE ECHOCARDIOGRAM Name: CONSTANZA MEJIA Room #: 202-P [facility] IN ..#: [id number] Admission: 03/03/21 Attend Phys: Ruben Chandler MD Discharge: Date of : 60 Report #: [id number] AO V2 Mean: 1.92 m/s LVOT Max V: 1.08 m/s AO V2 VTI: 56.79 cm ECTOR Vmax: 1.25 cm2 Mitral Valve E/A Ratio: 1.3 MV Decel. Time: 250.09 ms MV E Max Puneet.: 0.93 m/s MV A Puneet.: 0.74 m/s MV PHT: 72.52 ms IVRT: 80.74 ms Pulmonary Valve PV Peak Puneet.: 1.00 m/s PV Peak Gr.: 4.03 mmHg Pulmonary Vein P Vein S: 0.78 m/s P Vein D: 0.54 m/s P Vein S/D Ratio: 1.44 Tricuspid Valve TR Peak Puneet.: 2.60 m/s RAP Estimate: 5.00 mmHg TR Peak Gr.: 27.13 mmHg PA Pressure: 32.00 mmHg Left Ventricle The left ventricle is normal size. There is normal LV segmental wall motion. Mild concentric left ventricular hypertrophy. Left ventricular systolic function is normal. LVEF is 60-65%. Moderate diastolic dysfunction Right Ventricle The right ventricle is normal size. The right ventricular systolic function is normal. Atria Left atrium is dilated. The right atrium size is normal. Aortic Valve Aortic valve is moderately calcified, trileaflet. Mild-moderate stenosis, no insufficiency There is mild-moderate valvular aortic stenosis. Calculated aortic valve area is 1.3 cm2 (Peak gradient of 34 mmHg, mean pressure gradient of 17 mmHg). Mitral Valve Moderate mitral annular calcification. There is no mitral valve [facility] [address] [place] [address] 2 D/M-MODE ECHOCARDIOGRAM Name: CONSTANZA MEJIA YAZ Room #: 202-P [facility] IN ..#: [id number] Admission: 03/03/21 Attend Phys: Ruben Chandler MD Discharge: Date of : 60 Report #: [id number] regurgitation No evidence of mitral valve stenosis. Tricuspid Valve The tricuspid valve is normal in structure. Trace tricuspid regurgitation. Estimated PAP is 32mmHg. Pulmonic Valve The pulmonary valve is normal in structure. There is no pulmonic valvular regurgitation. Great Vessels The aortic root is normal in size. The ascending aorta is normal in size. IVC is normal in size and collapses >50% with inspiration. Pericardium There is no pericardial effusion. <Conclusion> Left ventricular systolic function is normal. There is normal LV segmental wall motion. LVEF is 60-65%. Mild concentric left ventricular hypertrophy. Left atrium is dilated. Aortic valve is moderately calcified, trileaflet. Mild-moderate stenosis, no insufficiency Calculated aortic valve area is 1.3 cm2 (Peak gradient of 34 mmHg, mean pressure gradient of 17 mmHg). Moderate mitral annular calcification. No mitral valve regurgitation Trace tricuspid regurgitation. Estimated pulmonary artery pressure of 32mmHg. There is no pericardial effusion. <ELECTRONICALLY SIGNED> By: Rene Hwang MD, FACC 03/03/21 1300 1300 1300 Rene Hwang MD, FACC /INF
--- NOTE | 2021-03-03 13:46 | NUR ---
ORDERS RECEIVED FOR EVAL AND TREAT. SPOKE WITH Pt WHO STATES HE HAS ALREADY BEEN UP AND FEELS LIKE HE IS AT BASELINE. OBSERVED HIM STAND AND AMBULATE IN HIS ROOM WITHOUT DIFFICULTY. Pt DECLINING A FORMAL P.T. EVAL BUT APPEARS SAFE FOR HOME WHEN MEDICALLY CLEAR
[2021-03-03 13:47] LABS: URINE BILIRUBIN NEGATIVE (Negative); URINE BLOOD TRACE (Negative); URINE CLARITY CLEAR; URINE COLOR YELLOW; URINE GLUCOSE-RANDOM* 3+ (Negative); URINE KETONES NEGATIVE (Negative); URINE LEUKOCYTES-REFLEX NEGATIVE (Negative); URINE NITRITE-REFLEX NEGATIVE (Negative); URINE PROTEIN (DIPSTICK) NEGATIVE (Negative); URINE SPECIFIC GRAVITY 1.025 (1.005-1.035); URINE UROBILINOGEN 0.2 E.U./dl (0.2-1.0)
[2021-03-03 13:54] LABS: AMP/METHAMP Negative (Negative); BARBITURATES Negative (Negative); BENZODIAZEPINES Negative (Negative); COCAINE Negative (Negative); METHADONE Negative (Negative); OPIATES POSITIVE (Negative); PCP Negative (Negative)
[2021-03-03 15:15] VITALS: BP 147/76
[2021-03-03 19:28] VITALS: BP 163/92
[2021-03-04 04:14] LABS: CALCIUM 8.7 mg/dL (8.5-10.1); MAGNESIUM 2.2 mg/dL (1.8-2.4); POTASSIUM 3.3 mmol/L (3.5-5.1)
[2021-03-04 04:19] LABS: CREATININE 0.8 mg/dL (0.7-1.3)
[2021-03-04 04:28] LABS: ABSOLUTE NEUTROPHILS 6.3 thou/uL (1.4-8.2); BASOPHILS 0.9 % (0.0-2.0); EOSINOPHILS 4.1 % (0.0-3.0); HEMATOCRIT 38.5 % (42.0-52.0); HEMOGLOBIN 12.5 gm/dL (14.0-18.0); LYMPHOCYTES 31.7 % (24.0-44.0); MCH 24.8 pg (26.0-34.0); MCHC 32.4 g/dL (28.0-37.0); MCV 76.5 fL (80.0-100.0); MONOCYTES 6.7 % (1.0-8.0); PLATELET COUNT 335 thou/uL (150-400); POLYS 56.6 % (36.0-66.0); RBC 5.04 mil/uL (4.50-6.00); RDW 15.8 % (10.5-14.5); WBC 11.2 thou/uL (4.0-11.0)
[2021-03-04 04:29] VITALS: BP 146/85
--- NOTE | 2021-03-04 04:47 | NUR ---
PT IS AWAKE AND ALERT NONVERBAL WAVES HIS HAND HI AT ME. LUNGS ARE CLEAR ON ROON AIR. PT INCONTINENT. REPOSTITION Q 2 HOURS IN BED WITH PILLOWS. ABDOMEN IS SOFT. NO PAIN NOTED. SLEEPING DURING THE NIGHT. CALL LIGHT IN BED AND CLOSE AT NURSES STATION FOR OBSERVATION. NO ISSUES NOTED.
--- NOTE | 2021-03-04 04:57 | NUR ---
PT IS ALERT AND ORIENTED X4. LUNGS ARE CLEAR ON ROOM AIR. UP TO BATHROOM AND VOIDS IN URINAL WITH ASSISTANCE PER STAFF. PT SLEPT GOOD AND IS RESTED THIS AM.ABDOMEN IS SOFT AND NONTENDER NO PAIN NOTED. NO EDEMA NOTED. DR. GARZA SEEN PT FOR EVALUATION LAST NIGHT AT BEDSIDE. CALL LIGHT WITHIN REACH IF NEEDS ASSISTANCE.
[2021-03-04 07:08] LABS: GLYCOHEMOGLOBIN (HGB A1C) 11.1 % (4.8-5.6)
[2021-03-04 07:40] VITALS: BP 163/89
[2021-03-04 11:25] VITALS: BP 148/93
--- NOTE | 2021-03-04 13:01 | EKG ---
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 : 1960 Requested By: Andreia Garza Order Number: [id number] MD: Israel Ott Measurements Intervals [place] Rate: 69 P: -83 [place]: 115 QRS: 24 QRSD: 101 T: 6 QT: 430 QTc: 461 Interpretive Statements Sinus or ectopic atrial rhythm Borderline short [place] interval Probable left ventricular hypertrophy Baseline wander in lead(s) V4 Compared to ECG 03/03/2021 00:25:27 Electronically Signed On 03-04-2021 13:01:38 CDT by Israel Ott [email or web address] <ELECTRONICALLY SIGNED> By: Israel Ott MD 03/04/21 1301 0833 2 Israel Ott MD /[place]
[2021-03-04 15:12] VITALS: BP 152/86
[2021-03-04] MEDS ORDERED: TRADJENTA5 MG PO (17:16)
[2021-03-04] MEDS ORDERED: TRAZODONE HCL50 MG PO (17:16)
[2021-03-04] MEDS ORDERED: FOLIC ACID0.4 MG PO (17:16)
[2021-03-04] MEDS ORDERED: CLONAZEPAM 1 MG1 M1 PO ×2 (17:16)
[2021-03-04] MEDS ORDERED: REMERON 30 MG T30 M1 PO (17:16)
[2021-03-04] MEDS ORDERED: LIPITOR40 MG PO (17:16)
[2021-03-04] MEDS ORDERED: BAYER CHEWABLE81 MG PO (17:16)
[2021-03-04] MEDS ORDERED: ACETAMINOPHEN325 M1 PO (17:16)
[2021-03-04 17:21] VITALS: BP 152/86
--- NOTE | 2021-03-04 18:08 | NUR ---
ASSUMED CARE SHIFT CHAGNE. ASSESSMETNS CHARTED.VSS. DENIES PAIN. UP SBA NO ISSUES NOTED. PT AND S/O ASKING ABOUT DC. PHYSICIAN NOTIFIED. DISCUSSION B/T PHYSICIAN AND SISTER LESLI. REFER TO PHYSICIAN NOTE. DC ORDERS. DISCUSSED FOLLOW UP APPT WITH PT. COMMUNICATES UNDERSTANDING. IV REMOVED TELE REMOVED. PT LEFT UNIT WITH BELONGINGS.
== END 2021-03-04 18:12 | disposition home or self-care (01) | DRG 312 ==
LOC: ER 00:19 → EROBS 02:15 → 2N 02:15
PROVIDERS: Emergency Medicine; Internal Medicine; Nurse Practitioner; Psychiatry & Neurology Neuromuscular Medicine; ADMIT Hospitalist; ATTEND Hospitalist
DX: R55 Syncope and collapse (principal); G93.41 Metabolic encephalopathy; N17.0 Acute kidney failure with tubular necrosis; I69.351 Hemiplegia and hemiparesis following cerebral infarction affecting right dominant side; F41.9 Anxiety disorder, unspecified; E11.40 Type 2 diabetes mellitus with diabetic neuropathy, unspecified; G89.29 Other chronic pain; K21.9 Gastro-esophageal reflux disease without esophagitis; S00.93XA Contusion of unspecified part of head, initial encounter; E87.6 Hypokalemia; I25.10 Atherosclerotic heart disease of native coronary artery without angina pectoris; I35.0 Nonrheumatic aortic (valve) stenosis; E78.5 Hyperlipidemia, unspecified; E11.22 Type 2 diabetes mellitus with diabetic chronic kidney disease; I12.9 Hypertensive chronic kidney disease with stage 1 through stage 4 chronic kidney disease, or unspecified chronic kidney disease; T43.595A Adverse effect of other antipsychotics and neuroleptics, initial encounter; E11.51 Type 2 diabetes mellitus with diabetic peripheral angiopathy without gangrene; N18.9 Chronic kidney disease, unspecified; Z20.822 Contact with and (suspected) exposure to COVID-19; G47.00 Insomnia, unspecified; F32.9 Major depressive disorder, single episode, unspecified; R53.81 Other malaise; Z79.891 Long term (current) use of opiate analgesic; Z90.49 Acquired absence of other specified parts of digestive tract; Z88.0 Allergy status to penicillin; Z87.891 Personal history of nicotine dependence; Z79.82 Long term (current) use of aspirin; Z79.899 Other long term (current) drug therapy; Y92.89 Other specified places as the place of occurrence of the external cause
CPT/HCPCS: 10081

== ENCOUNTER 2021-03-28 11:47 | Emergency (ER) | payer BC, OTHER ==
[~2021-03-28] VITALS: Ht 172.7 cm; Wt 61.2 kg
[~2021-03-28 11:47] MED LIST changes: +ALPRAZOLAM1 MG PO; +BAYER CHEWABLE81 MG PO; +BYSTOLIC10 MG PO; +CELEXA 20 MG TA20 MG PO; +CLONAZEPAM 0.50.5 M1 PO; +CLONAZEPAM 1 MG1 M1 PO; +EDARBYCLOR 40-1 EAC1 PO; +FOLIC ACID0.4 MG PO; +GEODON80 MG PO; +LIPITOR40 MG PO; +METFORMIN HCL1000 MG PO; +REMERON 30 MG T30 M1 PO; +TRADJENTA5 MG PO; +TRAZODONE HCL50 MG PO
[2021-03-28 12:10] LABS: ABSOLUTE NEUTROPHILS 8.3 thou/uL (1.4-8.2); BASOPHILS 0.7 % (0.0-2.0); EOSINOPHILS 1.1 % (0.0-3.0); HEMOGLOBIN 13.5 gm/dL (14.0-18.0); LYMPHOCYTES 22.3 % (24.0-44.0); MCH 26.1 pg (26.0-34.0); MCHC 33.7 g/dL (28.0-37.0); MCV 77.2 fL (80.0-100.0); MONOCYTES 6.5 % (1.0-8.0); PLATELET COUNT 445 thou/uL (150-400); POLYS 69.4 % (36.0-66.0); RBC 5.18 mil/uL (4.50-6.00)
[2021-03-28 12:20] LABS: CALCIUM 9.2 mg/dL (8.5-10.1); CREATININE 1.5 mg/dL (0.7-1.3); POTASSIUM 3.3 mmol/L (3.5-5.1)
[2021-03-28] MEDS ORDERED: CLONAZEPAM 1 MG1 M1 PO (17:33)
[2021-03-28 17:37] VITALS: BP 118/65
--- NOTE | 2021-03-29 07:12 | EKG ---
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 : 1960 Requested By: Richard Zapien Order Number: [id number] MD: Pan Clancy Measurements Intervals [place] Rate: 73 P: -77 [place]: 77 QRS: 26 QRSD: 105 T: 0 QT: 412 QTc: 454 Interpretive Statements Sinus rhythm Short [place] interval Borderline T abnormalities, inferior leads Baseline wander in lead(s) V1 Compared to ECG 03/04/2021 08:33:38 T-wave abnormality now present Electronically Signed On 03-29-2021 7:12:43 CDT by Pan Clancy [email or web address] <ELECTRONICALLY SIGNED> By: Pan Clancy MD, [facility] 03/29/21 0712 1159 [id number] Pan Clancy MD, FAC /EPI
== END 2021-03-28 17:37 | disposition home or self-care (01) ==
LOC: ER 11:47
PROVIDERS: Nurse Practitioner
DX: E11.65 Type 2 diabetes mellitus with hyperglycemia (principal); Z20.822 Contact with and (suspected) exposure to COVID-19; F19.20 Other psychoactive substance dependence, uncomplicated; F41.9 Anxiety disorder, unspecified; E11.40 Type 2 diabetes mellitus with diabetic neuropathy, unspecified; K21.9 Gastro-esophageal reflux disease without esophagitis; Z90.49 Acquired absence of other specified parts of digestive tract; Z90.89 Acquired absence of other organs; Z79.82 Long term (current) use of aspirin; Z79.891 Long term (current) use of opiate analgesic; Z79.1 Long term (current) use of non-steroidal anti-inflammatories (NSAID); Z79.899 Other long term (current) drug therapy; Z88.0 Allergy status to penicillin; Z88.8 Allergy status to other drugs, medicaments and biological substances; Z87.891 Personal history of nicotine dependence

== ENCOUNTER 2021-06-10 15:56 | Inpatient (IN) | payer BC, OTHER ==
[~2021-06-10] VITALS: Ht 172.7 cm; Wt 72.6 kg
[2021-06-10 15:57] VITALS: BP 150/66
[2021-06-10 16:19] LABS: ABSOLUTE NEUTROPHILS 3.8 thou/uL (1.4-8.2); BASOPHILS 1.3 % (0.0-2.0); EOSINOPHILS 1.9 % (0.0-3.0); HEMATOCRIT 36.4 % (42.0-52.0); HEMOGLOBIN 11.8 gm/dL (14.0-18.0); LYMPHOCYTES 28.3 % (24.0-44.0); MCH 25.2 pg (26.0-34.0); MCHC 32.4 g/dL (28.0-37.0); MCV 77.9 fL (80.0-100.0); MONOCYTES 9.2 % (1.0-8.0); PLATELET COUNT 356 thou/uL (150-400); POLYS 59.3 % (36.0-66.0); RBC 4.67 mil/uL (4.50-6.00); RDW 16.9 % (10.5-14.5); WBC 6.5 thou/uL (4.0-11.0)
[2021-06-10 16:41] LABS: ALBUMIN 3.7 g/dL (3.4-5.0); CALCIUM 8.5 mg/dL (8.5-10.1); CREATININE 1.1 mg/dL (0.7-1.3); TOTAL BILIRUBIN 0.3 mg/dL (0.2-1.0); TOTAL PROTEIN 6.5 g/dL (6.4-8.2)
[2021-06-10 16:43] LABS: POTASSIUM 2.7 mmol/L (3.5-5.1)
--- NOTE | 2021-06-10 17:02 | NUR ---
PTS REVEALS PT ACTUALLY FELL AT HOME AND HIT HIS HEAD AND LOSS CONSCIOUSNESS. PT HAS APPROX. 3-4INCH LACERATION ON THE TOP OF HIS HEAD. PT FIANCE REPORTS THE PTS SISTER POSSIBLY SAW SEIZURE ACTIVITY AFTER THE PT FELL AND HIT HIS HEAD.
[2021-06-10 17:29] LABS: URINE BILIRUBIN NEGATIVE (Negative); URINE BLOOD NEGATIVE (Negative); URINE CLARITY CLEAR; URINE COLOR YELLOW; URINE GLUCOSE-RANDOM* 2+ (Negative); URINE KETONES NEGATIVE (Negative); URINE LEUKOCYTES-REFLEX NEGATIVE (Negative); URINE NITRITE-REFLEX NEGATIVE (Negative); URINE PROTEIN (DIPSTICK) 2+ (Negative); URINE SPECIFIC GRAVITY >= 1.030 (1.005-1.035); URINE UROBILINOGEN 0.2 E.U./dl (0.2-1.0)
--- NOTE | 2021-06-10 17:39 | NUR ---
PT TO CT AT THIS TIME
--- NOTE | 2021-06-10 17:49 | NUR ---
PT BACK FROM CT
[2021-06-10 18:10] LABS: BACTERIA-REFLEX 1-9 Few /HPF (None Seen); HYALINE CASTS 0-3 Few /LPF (None Seen); SQUAMOUS 0-3 Few /LPF (0-3); URINE RBC 1-2 Rare /HPF (NONE SEEN); URINE WBC-REFLEX 0-5 Rare /HPF (0-5)
[2021-06-10 18:11] LABS: CRYSTALS None Seen /LPF (None Seen)
[2021-06-10] MEDS ORDERED: QUETIAPINE FUMA50 MG PO (21:12)
[2021-06-10] MEDS ORDERED: TEMAZEPAM15 MG PO (21:13)
[2021-06-10] MEDS ORDERED: TRESIBA FL100 UNIT/1 SUBQ (21:15)
[2021-06-10] MEDS ORDERED: NOVOLOG FL100 UNIT/M SUBQ (21:17)
[2021-06-10] MEDS ORDERED: URSODIOL300 MG PO (21:20)
[2021-06-10] MEDS ORDERED: BARIATRIC MV-I1 EACH PO (21:21)
[2021-06-11 10:00] VITALS: BP 169/81; BP 19/81
[2021-06-11 10:13] LABS: CALCIUM 8.6 mg/dL (8.5-10.1); CREATININE 0.8 mg/dL (0.7-1.3); PHOSPHORUS 2.8 mg/dL (2.5-4.9); POTASSIUM 3.4 mmol/L (3.5-5.1)
[2021-06-11 17:47] VITALS: BP 151/85
[2021-06-11 20:20] VITALS: BP 124/66
[2021-06-12 00:12] VITALS: BP 145/74
[2021-06-12 03:05] LABS: GLYCOHEMOGLOBIN (HGB A1C) 10.4 % (4.8-5.6)
[2021-06-12 04:17] VITALS: BP 168/83
--- NOTE | 2021-06-12 05:24 | NUR ---
PT ANXIOUS EARLIER IN THE NIGHT. PRN ANXIETY MEDICATIONS GIVEN. SEE EMAR. TYLENOL GIVEN FOR C/O HEADACHE. PT SLEPT OFF AND ON DURING THE NIGHT. FALL PRECAUTIONS IN PLACE.
[2021-06-12 06:32] LABS: ABSOLUTE NEUTROPHILS 5.5 thou/uL (1.4-8.2); BASOPHILS 0.8 % (0.0-2.0); EOSINOPHILS 1.2 % (0.0-3.0); HEMATOCRIT 37.5 % (42.0-52.0); HEMOGLOBIN 12.1 gm/dL (14.0-18.0); LYMPHOCYTES 28.7 % (24.0-44.0); MCH 25.3 pg (26.0-34.0); MCHC 32.2 g/dL (28.0-37.0); MCV 78.4 fL (80.0-100.0); MONOCYTES 7.9 % (1.0-8.0); PLATELET COUNT 312 thou/uL (150-400); POLYS 61.4 % (36.0-66.0); RBC 4.78 mil/uL (4.50-6.00); RDW 17.3 % (10.5-14.5); WBC 8.9 thou/uL (4.0-11.0)
[2021-06-12 06:46] LABS: CALCIUM 9.2 mg/dL (8.5-10.1); CREATININE 0.7 mg/dL (0.7-1.3); MAGNESIUM 2.3 mg/dL (1.8-2.4); POTASSIUM 3.4 mmol/L (3.5-5.1)
--- NOTE | 2021-06-12 07:38 | EKG ---
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 : 1960 Requested By: Albertina Dowell Order Number: [id number] MD: Pan Clancy Measurements Intervals [place] Rate: 57 P: -61 [place]: 135 QRS: 60 QRSD: 99 T: -70 QT: 462 QTc: 450 Interpretive Statements Sinus rhythm Consider left atrial enlargement Probable left ventricular hypertrophy Borderline T abnormalities, diffuse leads Compared to ECG 03/28/2021 11:59:54 Short [place] interval no longer present T-wave abnormality still present Electronically Signed On 06-12-2021 7:38:04 CUT OFF SAW OPERATOR PIPE BLANKS by Pan Clancy [email or web address] <ELECTRONICALLY SIGNED> By: Pan Clancy MD, [facility] 06/12/21 0738 1600 1600 Pan Clancy MD, [facility] /EPI
[2021-06-12 08:00] VITALS: BP 160/80
[2021-06-12 12:00] VITALS: BP 140/68
--- NOTE | 2021-06-12 12:21 | NUR ---
1200: PT'S FIANCE AT BEDSIDE. DR. SWEENEY AT BEDSIDE AND UPDATED PT AND FIANCE ON PLAN FOR DC TODAY HOME WITH HOME PHYSICAL THERAPY.
[2021-06-12] MEDS ORDERED: BENICAR20 MG PO (13:37)
[2021-06-12 13:51] VITALS: BP 140/68
--- NOTE | 2021-06-12 13:54 | NUR ---
Pt admitted related to bradycardia, syncope, hypokalemia. Cm reviewed chart and spoke with care team. Cm met with pt and fiance at bedside this day. Pt appeared to be a&ox4. Cm role introduced. Pt indicated that he resides in a house with his fiance and sister. He indicated there are 2 steps to enter and all needs on one level once inside. 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 Pt indicated no dme for home use. Pt indicated no prior hh or op therapy. Care team indicated that pt is medically stable to dc home this day with PT. PT and fiance are aware and agreeable. They expressed no preferance in providers. Cm sent referral to [facility]. They can accept. Cm notified pt and fiance of this. Cm to fax orders to [facility] once completed. Pt indicated his fiance with transport him home this day. No other cm intervention indicated. Case Closed.
[2021-06-12 14:00] VITALS: BP 140/68
--- NOTE | 2021-06-12 14:49 | NUR ---
PT DISCHARGED HOME WITH HOME HEALTH, PT'S FIANCE PRESENT FOR DC INSTRUCTIONS AND EDUCATION. PT DISCHARGED ON HALTER MONITOR WITH F/U APPOINTMENT IN 2 WEEKS WITH CARDIOLOGY. PT VERBALIZES UNDERSTANDING AND EDUCATION PRIOR TO DC.
== END 2021-06-12 14:53 | disposition home or self-care (01) | DRG 316 ==
LOC: ER 15:56 → EROBS 19:41
PROVIDERS: Emergency Medicine; ADMIT Internal Medicine; ATTEND Internal Medicine
PROC: 0HQ0XZZ Repair Scalp Skin, External Approach (ICD-10-PCS; principal; 2021-06-10)
DX: I95.9 Hypotension, unspecified (principal); F41.9 Anxiety disorder, unspecified; K21.9 Gastro-esophageal reflux disease without esophagitis; E87.6 Hypokalemia; S00.01XA Abrasion of scalp, initial encounter; G47.00 Insomnia, unspecified; F32.9 Major depressive disorder, single episode, unspecified; N18.9 Chronic kidney disease, unspecified; G89.4 Chronic pain syndrome; F17.210 Nicotine dependence, cigarettes, uncomplicated; X58.XXXA Exposure to other specified factors, initial encounter; E11.42 Type 2 diabetes mellitus with diabetic polyneuropathy; I35.0 Nonrheumatic aortic (valve) stenosis; E11.22 Type 2 diabetes mellitus with diabetic chronic kidney disease; E11.51 Type 2 diabetes mellitus with diabetic peripheral angiopathy without gangrene; Z90.49 Acquired absence of other specified parts of digestive tract; Z88.0 Allergy status to penicillin; Z88.8 Allergy status to other drugs, medicaments and biological substances; Y93.89 Activity, other specified; Y92.89 Other specified places as the place of occurrence of the external cause; Y99.8 Other external cause status; Z82.49 Family history of ischemic heart disease and other diseases of the circulatory system; Z86.73 Personal history of transient ischemic attack (TIA), and cerebral infarction without residual deficits

== ENCOUNTER → 2021-07-05 | Outpatient (CLI) | payer BC, OTHER ==
[~2021-07-05] MED LIST changes: +BARIATRIC MV-I1 EACH PO; +NOVOLOG FL100 UNIT/M SUBQ; +QUETIAPINE FUMA50 MG PO; +TEMAZEPAM15 MG PO; +TRESIBA FL100 UNIT/1 SUBQ
== END ==
LOC: SJCVCIMAG 07:06
PROVIDERS: ATTEND Internal Medicine Cardiovascular Disease
DX: I08.0 Rheumatic disorders of both mitral and aortic valves (principal); I11.9 Hypertensive heart disease without heart failure; E11.9 Type 2 diabetes mellitus without complications; K21.9 Gastro-esophageal reflux disease without esophagitis; E78.5 Hyperlipidemia, unspecified; G47.30 Sleep apnea, unspecified; Z87.891 Personal history of nicotine dependence; Z88.0 Allergy status to penicillin; Z88.8 Allergy status to other drugs, medicaments and biological substances; Z79.899 Other long term (current) drug therapy